=== PATIENT | male | born 1950 | race Caucasian/White ===

== ENCOUNTER 2018-05-25 20:20 | Emergency (ER) | payer MEDICARE, OTHER ==
[2018-05-25] MEDS: Bacitracin Oint 1 GM U/D Packet TOP ONE (21:05)
[2018-05-25] MEDS: Diphtheria,Pertussis(Acell),Tetanus Vaccine 0.5 ML SDV IM ONE (21:06)
--- NOTE | 2018-05-25 21:34 | EDM.PDOC ---
ED HPI GENERAL MEDICAL PROBLEM - General Chief Complaint: Laceration Stated Complaint: CUT ON RIGHT FOOT Time Seen by Provider: 05/25/18 20:50 Source of Information: Reports: Patient History Limitations: Reports: No Limitations - History of Present Illness INITIAL COMMENTS - FREE TEXT/NARRATIVE: 68-year-old male dropped a piece of slate and it struck the inside of his right ankle causing small lacerations. No other injury. Onset: Sudden Duration: Hour(s): (Within the last 2 hours) Location: Reports: Lower Extremity, Right Associated Symptoms: Reports: No Other Symptoms right ankle Pain Score (Numeric/FACES): 1 - Related Data Allergies Allergy/AdvReac Type Severity Reaction Status Date / Time pollen extracts Allergy Itching Verified 05/25/18 20:48 Home Meds: Home Meds Aspirin [Loraine Chewable Aspirin] 81 mg PO DAILY 05/25/18 [History] Naproxen Sodium [Aleve] 440 mg PO DAILY 05/25/18 [History] Past Medical History HEENT History: Reports: Impaired Vision Gastrointestinal History: Reports: GERD Genitourinary History: Reports: Other (See Below) Other Genitourinary History: Prostate CA Musculoskeletal History: Reports: Back Pain, Chronic Oncologic (Cancer) History: Reports: Prostate - Infectious Disease History Infectious Disease History: Reports: Chicken Pox, Measles - Past Surgical History Male Surgical History: Reports: Prostatectomy Musculoskeletal Surgical History: Reports: Arthroscopic Knee, Arthroscopic Procedure, Shoulder Surgery Social & Family History - Tobacco Use Smoking Status *Q: Never Smoker - Caffeine Use Caffeine Use: Reports: Soda - Recreational Drug Use Recreational Drug Use: No ED ROS GENERAL - Review of Systems Review Of Systems: See Below Constitutional: Denies: Fever Respiratory: Denies: Shortness of Breath GI/Abdominal: Denies: Abdominal Pain, Nausea, Vomiting Neurological: Reports: No Symptoms ED EXAM, SKIN/RASH Exam: See Below Exam Limited By: No Limitations General Appearance: Alert, No Apparent Distress Respiratory/Chest: No Respiratory Distress Extremities: Other (Remainder of exam is limited to the right foot. Patient has 2 separate lacerations on the inner aspect of the right ankle area, a 2 cm curved deeper laceration just anterior to the medial malleolus and a straight 2.5 cm laceration on the dorsal medial aspect of the foot) Neurological: Alert, Oriented Course - Vital Signs Last Recorded V/S: Last Vital Signs Temp 97.5 F 05/25/18 20:59 Pulse 69 05/25/18 20:59 Resp 16 05/25/18 20:59 BP 144/84 H 05/25/18 20:59 Pulse Ox 99 05/25/18 20:59 - Orders/Labs/Meds Orders: Active Orders 24 hr Category Date Time Status Vaccines to be Administered [RC] PER UNIT ROUTINE Care 05/25/18 20:58 Active Meds: Medications Discontinued Medications Generic Name Dose Route Start Last Admin Trade Name Karyn PRN Reason Stop Dose Admin Bacitracin 1 dose 05/25/18 20:57 05/25/18 21:05 Bacitracin Oint 1 Gm TOP 05/25/18 20:58 1 dose ONETIME ONE Administration Diphtheria/Tetanus/Acell Pertussis 0.5 ml 05/25/18 20:58 05/25/18 21:06 Adacel IM 05/25/18 20:59 0.5 ml .ONCE ONE Administration Lidocaine HCl 5 ml 05/25/18 20:57 05/25/18 21:06 Xylocaine-Mpf 1% INJECT 05/25/18 20:58 5 ml ONETIME ONE Administration - Re-Assessments/Exams Free Text/Narrative Re-Assessment/Exam: 05/25/18 21:33 Both lacerations were anesthetized with 1% lidocaine and cleansed thoroughly with saline. Both were closed with 3 4-0 Ethilon sutures. Topical bacitracin was applied, sutures can be removed in 8 days. He is to keep the wounds covered and clean while healing, and was also given a TDap booster Departure - Departure Time of Disposition: 21:43 Disposition: Home, Self-Care 01 Condition: Good Clinical Impression: Foot laceration Qualifiers: Encounter type: initial encounter Laterality: right Qualified Code(s): S91.311A - Laceration without foreign body, right foot, initial encounter - Discharge Information Instructions: Laceration Care, Adult Referrals: PCP,None [Primary Care Provider] - Forms: ED Department Discharge Care Plan Goals: Keep wounds covered and clean while healing, sutures can be removed in 8 days. Activity as tolerated. Return sooner if concerns of infection or not healing satisfactorily. - My Orders Last 24 Hours: My Active Orders 05/25/18 20:58 Vaccines to be Administered [RC] PER UNIT ROUTINE - Assessment/Plan Last 24 Hours: My Active Orders 05/25/18 20:58 Vaccines to be Administered [RC] PER UNIT ROUTINE
== END 2018-05-25 21:41 | disposition home or self-care (01) ==
LOC: JP.ED 20:20
DX: S91.011A Laceration without foreign body, right ankle, initial encounter (principal); Z23 Encounter for immunization; Z91.09 Other allergy status, other than to drugs and biological substances; Z79.82 Long term (current) use of aspirin; Z79.899 Other long term (current) drug therapy; W22.8XXA Striking against or struck by other objects, initial encounter
CPT/HCPCS: 12002; 90471; 90715; 99283-25